=== PATIENT | male | born 1965 | race Caucasian/White ===

== ENCOUNTER 2016-11-09 13:45 | Outpatient (CLI) | payer OTHER, BC | END 2016-11-09 13:46 | disposition critical access hospital (66) | LOC: EMS 13:45 | PROVIDERS: ATTEND Surgery | DX: R06.02 Shortness of breath (principal); R53.1 Weakness; R11.0 Nausea; R19.7 Diarrhea, unspecified | CPT/HCPCS: A0425; A0429 ==

== ENCOUNTER 2016-11-09 13:50 | Emergency (ER) | payer OTHER, BC ==
[2016-11-09 14:13] LABS: BASOPHILS # (AUTO) 0.1 10^3/uL (0.0-0.1); BASOPHILS % (AUTO) 0.4 %; EOSINOPHILS # (AUTO) 0.2 10^3/uL (0.0-0.7); EOSINOPHILS % (AUTO) 1.3 %; HGB - HEMOGLOBIN 15.5 g/dL (14.0-18.0); LYMPHOCYTES # (AUTO) 0.5 10^3/uL (1.5-3.5); LYMPHOCYTES % (AUTO) 4.1 %; MEAN CORPUSCULAR HEMOGLOBIN 30.5 pg (27.0-31.0); MEAN CORPUSCULAR HGB CONC 34.4 g/dL (32.0-36.0); MEAN CORPUSCULAR VOLUME 88.7 fL (80.0-94.0); MEAN PLATELET VOLUME 8.4 fL (7.4-11.4); MONOCYTES # (AUTO) 0.7 10^3/uL (0.0-1.0); MONOCYTES % (AUTO) 5.4 %; NEUTROPHILS # (AUTO) 10.6 10^3/uL (1.5-6.6); NEUTROPHILS % (AUTO) 88.8 %; RED BLOOD COUNT 5.08 10^6/uL (4.70-6.10); RED CELL DISTRIBUTION WIDTH 12.9 % (12.0-15.0)
[2016-11-09] MEDS ORDERED: FAMOTIDINE 20 MG/50 ML 50 ML IV ONE ×2 (14:19→14:23)
[2016-11-09] MEDS ORDERED: ONDANSETRON 4 MG/2 ML VIAL IVP STA (14:19)
[2016-11-09] MEDS ORDERED: ONDANSETRON 4 MG/2 ML VIAL ONE (14:23)
[2016-11-09 14:30] LABS: ALBUMIN/GLOBULIN RATIO 1.8 (1.0-2.2); BILIRUBIN,TOTAL 0.9 mg/dL (0.2-1.0); CALCIUM 9.2 mg/dL (8.5-10.3); POTASSIUM 3.9 mmol/L (3.5-5.0); TOTAL PROTEIN 6.8 g/dL (6.7-8.2)
--- NOTE | 2016-11-09 15:01 | XRAY Preliminary Report ---
Exam: XR Chest 1 View IMPRESSION: Normal single view chest. [facility] SITE ID: [id number]
--- NOTE | 2016-11-09 15:03 | XRAY Report ---
EXAM: CHEST RADIOGRAPHY EXAM DATE: 11/09/2016 02:23 PM. CLINICAL HISTORY: Soa. COMPARISON: 03/24/2007. TECHNIQUE: 1 view. FINDINGS: Lungs/Pleura: No focal opacities evident. No pleural effusion. No pneumothorax. Mediastinum: Within exam limitations, cardiomediastinal contour is normal. Other: None. IMPRESSION: Normal single view chest. [facility] Referring Provider Line: [phone] SITE ID: [id number]
--- NOTE | 2016-11-09 15:06 | ED Physician Documentation ---
History of Present Illness - Stated complaint Stated Complaint: SOA - Chief complaint Chief Complaint: General - Additonal information Additional information: hx from pt 51 male approx 11 AM ate a donut then developed nausea, abd fullness, felt soa weak and fatigued, little bit of CP and a lot of non bloody diarrhea has had episodes of profound fatigue several times recently but also reports able to run 6 miles without any problems possible GB issues was told he had biliary colic 20 yr ago had a bit of blood in BM several days ago but not since or today - no prior colonoscopy he is waiting until he is 52 no travel no leg swelling Review of Systems Constitutional: reports: Fatigue. denies: Fever, Chills Cardiac: reports: Chest pain / pressure Respiratory: reports: Dyspnea GI: reports: Abdominal Pain, Nausea, Diarrhea. denies: Bloody / black stool : denies: Dysuria Neurologic: reports: Generalized weakness Endocrine: denies: Easy bruising / bleeding Immunocompromised: denies: Immunocompromised PD PAST MEDICAL HISTORY - Past Medical History Past Medical History: Yes GI: GERD : Kidney stones - Past Surgical History Past Surgical History: Yes - Present Medications Home Medications: Ambulatory Orders Medication Instructions Recorded Confirmed Ondansetron Odt [Zofran] 4 mg TL Q6H PRN #10 tablet 11/09/16 Sucralfate 1 gm PO ACHS #120 tablet 11/09/16 raNITIdine [Zantac] 150 mg PO BID #60 tablet 11/09/16 raNITIdine [Zantac] 150 mg PO DAILY 11/09/16 11/09/16 - Allergies Allergies/Adverse Reactions: Allergies Allergy/AdvReac Type Severity Reaction Status Date / Time No Known Drug Allergies Allergy Verified 11/09/16 13:52 - Social History Does the pt smoke?: No Smoking Status: Never smoker PD ED PE NORMAL - Vitals Vital signs reviewed: Yes - General General: Alert and oriented X 3 - Neck Neck: Supple, no meningeal sign - Cardiac Cardiac: RRR - Respiratory Respiratory: No respiratory distress, Clear bilaterally - Abdomen Abdomen: Soft, Non tender - Derm Derm: Normal color - Extremities Extremities: No deformity - Neuro Neuro: Alert and oriented X 3, 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, No motor deficit, No sensory deficit Results - Vitals Vitals: Vital Signs - 24 hr 11/09/16 11/09/16 11/09/16 13:53 15:08 16:02 Temperature 37.1 C Heart Rate 81 74 80 Respiratory 20 18 17 Rate Blood Pressure 129/73 114/67 101/56 L O2 Saturation 100 97 99 Oxygen O2 Source Room air - EKG (time done) 1353 Rate: Rate (enter#) (78) Rhythm: NSR [place]: LAD Intervals: Normal [place] QRS: Normal Ischemia: Normal ST segments - Labs Labs: Laboratory Tests 11/09/16 11/09/16 11/09/16 14:00 14:00 14:00 WBC 12.0 H RBC 5.08 Hgb 15.5 Hct 45.0 MCV 88.7 MCH 30.5 MCHC 34.4 RDW 12.9 Plt Count 254 MPV 8.4 Neut # 10.6 H Lymph # 0.5 L [place] # 0.7 Eos # 0.2 Baso # 0.1 Absolute Nucleated RBC 0.00 Nucleated RBCs 0.0 Sodium 139 Potassium 3.9 Chloride 106 Carbon Dioxide 22 Anion Gap 11.0 BUN 25 H Creatinine 1.0 Estimated GFR (MDRD) 79 L Glucose 116 H Calcium 9.2 Total Bilirubin 0.9 AST 23 ALT 24 Alkaline Phosphatase 58 Troponin I < 0.04 Total Protein 6.8 Albumin 4.4 Globulin 2.4 Albumin/Globulin Ratio 1.8 Lipase 17 L 11/09/16 16:35 WBC RBC Hgb Hct MCV MCH MCHC RDW Plt Count MPV Neut # Lymph # [place] # Eos # Baso # Absolute Nucleated RBC Nucleated RBCs Sodium Potassium Chloride Carbon Dioxide Anion Gap BUN Creatinine Estimated GFR (MDRD) Glucose Calcium Total Bilirubin AST ALT Alkaline Phosphatase Troponin I < 0.04 Total Protein Albumin Globulin Albumin/Globulin Ratio Lipase - Rads (name of study) CXR Radiology: See rad report (no acute) ruq sono Radiology: See rad report (no gallstones) PD MEDICAL DECISION MAKING - ED course ED course: upper abd and les so CP with SOA fatigue nausea and diarrhea onset after eating a donut no known cardiac dz works out s sx EKG and trop X 2 neg CXR neg abd sono neg lipase LFTs neg pt feeling better after pepcid and zofran - some sx did re-occur after he ate again - suspect gastritis PUD will dc with zantac carafate and fup PMD for consideration of EST (though I think cardiac unlikely) and surgery for endoscopy is sx persist despite meds Departure - Departure Disposition: 01 Home, Self Care Clinical Impression: Abdominal pain, acute, epigastric, Chest pain of uncertain etiology Condition: Good Instructions: ED Abdominal Pain Unkn Cause Male, ED Chest Pain Atypical Unkn Cause Follow-Up: Ilene Schultz PA-C [Primary Care Provider] - Prescriptions: Sucralfate 1 gm PO ACHS #120 tablet raNITIdine [Zantac] 150 mg PO BID #60 tablet Ondansetron Odt [Zofran] 4 mg TL Q6H PRN #10 tablet PRN Reason: Nausea / Vomiting Comments: All of your tests were reassuring. The EKG and two sets of blood tests for your heart were negative. The chest xray did not show an enlarged heart of signs of an aneurysm The liver pancreas and kidney function tests were fine. The ultrasound did not show any gallstones, lover disease, or abdominal aneurysm. It is possible you have gastritis or an ulcer causing your symptoms but there is no test available in the ER to determine that for certain. But since your work up is reassuring and you are feeling better, I think it is safe for you to go home To be safe I would like you to follow up with your PMD to get a cardiac stress test - I don't believe your symptoms are due to heart problems but it is better to be safe Take the medications I prescribed for presumed gastritis. If you are still having symptoms despite the medication, please follow up with the surgeons for a scope of your stomach. Return to the ER if worse - just because today's tests were reassuring does not mean nothing is wrong - sometimes even with extensive testing in the ER, the cause of symptoms is not initially apparent - but as time passes and new symptoms develop, a diagnosis that was not initially apparent is able to be identified.
--- NOTE | 2016-11-09 15:39 | Ultrasound Preliminary Report ---
Exam: US Abdomen Limited IMPRESSION: 1. No evidence of cholelithiasis or cholecystitis. 2. Hepatomegaly without focal lesion. [facility] SITE ID: [id number]
--- NOTE | 2016-11-09 15:42 | Ultrasound Report ---
EXAM: ABDOMEN ULTRASOUND LIMITED, RUQ EXAM DATE: 11/09/2016 03:20 PM. CLINICAL HISTORY: Upper abdominal discomfort and nausea after donut. COMPARISON: None. TECHNIQUE: Real-time scanning was performed with static images obtained. FINDINGS: Liver: Mildly enlarged without focal lesion. 18.6 cm. Main portal vein flow: Hepatopetal. Gallbladder: Normal. No stones, wall thickening, or sonographic Valladares's sign. Biliary System: CBD measures 5 mm. No intrahepatic or extrahepatic ductal dilatation. Other: Right kidney measures 11.6 cm without hydronephrosis. Simple cyst at the upper pole measuring 1.3 cm. IMPRESSION: 1. No evidence of cholelithiasis or cholecystitis. 2. Hepatomegaly without focal lesion. [facility] Referring Provider Line: [phone] SITE ID: [id number]
[2016-11-09] MEDS ORDERED: LIDOCAINE VISCOUS 2% 15 ML UDC MM STA (17:38)
[2016-11-09] MEDS ORDERED: MAG HYDROX/AL HYDROX/SIMETH 30 ML UDC PO STA (17:38)
[2016-11-09] MEDS ORDERED: LIDOCAINE VISCOUS 2% 15 ML UDC MM ONE (17:40)
[2016-11-09] MEDS ORDERED: MAG HYDROX/AL HYDROX/SIMETH 30 ML UDC ONE (17:41)
[2016-11-09 17:55] VITALS: BP 108/58
== END 2016-11-09 18:00 | disposition home or self-care (01) ==
LOC: EDUNIT# → ED 13:50
DX: R10.13 Epigastric pain (principal); R07.9 Chest pain, unspecified; K21.9 Gastro-esophageal reflux disease without esophagitis; Z87.442 Personal history of urinary calculi
CPT/HCPCS: 36415; 71010; 76705; 80053; 83690; 84484; 85025; 93005; 93010; 96374; 96375; 99284; A9270

== ENCOUNTER 2018-10-05 08:55 | Outpatient (CLI) | payer BC ==
[2018-10-05 17:52] LABS: HGB - HEMOGLOBIN 15.2 g/dL (14.0-18.0); MEAN CORPUSCULAR HEMOGLOBIN 30.5 pg (27.0-31.0); MEAN CORPUSCULAR HGB CONC 33.1 g/dL (32.0-36.0); MEAN PLATELET VOLUME 8.4 fL (7.4-11.4); RED BLOOD COUNT 4.99 10^6/uL (4.70-6.10); RED CELL DISTRIBUTION WIDTH 13.4 % (12.0-15.0)
[2018-10-05 18:41] LABS: ALBUMIN 4.3 g/dL (3.2-5.5); ALBUMIN/GLOBULIN RATIO 1.5 (1.0-2.2); ALKALINE PHOSPHATASE 51 IU/L (42-121); ALT ALANINE AMINOTRANSFERASE 22 IU/L (10-60); AST ASPARTATE AMINOTRANSFERASE 21 IU/L (10-42); BUN - BLOOD UREA NITROGEN 17 mg/dL (6-20); CALCIUM 9.5 mg/dL (8.5-10.3); CARBON DIOXIDE - CO2 29 mmol/L (21-32); CHLORIDE 101 mmol/L (101-111); CHOL/HDL RATIO 4.9 (<5.0); CHOLESTEROL 260 mg/dL; CREATININE 0.9 mg/dL (0.6-1.2); GFR - MDRD 89 (>89); GLUCOSE 117 mg/dL (70-100); HDL CHOLESTEROL 53 mg/dL; LDL CHOLESTEROL,CALCULATED 180 mg/dL; LDL/HDL RATIO 3.4 (<3.6); SODIUM 139 mmol/L (135-145); TOTAL PROTEIN 7.2 g/dL (6.7-8.2); VLDL CHOLESTEROL 27 mg/dL
[2018-10-05 19:00] LABS: HEMOGLOBIN A1C 0.61 g/dL; HEMOGLOBIN A1C % 5.6 % (4.6-6.2)
== END 2018-10-05 08:56 | disposition home or self-care (01) ==
LOC: LAB.F 08:55
PROVIDERS: ATTEND Internal Medicine
DX: Z00.00 Encounter for general adult medical examination without abnormal findings (principal); K21.9 Gastro-esophageal reflux disease without esophagitis
CPT/HCPCS: 36415; 80053; 80061; 83036; 83721; 85027

== ENCOUNTER 2018-12-28 08:31 | Day surgery (SDC) | payer BC ==
[2018-12-28] MEDS ORDERED: LACTATED RINGERS 1,000 ML IV ONE (08:56)
[2018-12-28] MEDS ORDERED: fentaNYL 250 MCG/5 ML VIAL IVP ONE (12:05)
[2018-12-28] MEDS ORDERED: MIDAZOLAM 2 MG/2 ML VIAL IVP ONE (12:05)
[2018-12-28] MEDS ORDERED: ONDANSETRON 4 MG/2 ML VIAL ONE (12:12)
[2018-12-28 13:10] VITALS: BP 140/93
== END 2018-12-28 08:32 | disposition home or self-care (01) ==
LOC: SDS 08:31
PROVIDERS: ATTEND Internal Medicine Gastroenterology
PROC: 0DJD8ZZ Inspection of Lower Intestinal Tract, Via Natural or Artificial Opening Endoscopic (ICD-10-PCS; principal; 2018-12-28 09:30)
DX: Z12.11 Encounter for screening for malignant neoplasm of colon (principal); K21.9 Gastro-esophageal reflux disease without esophagitis; E66.9 Obesity, unspecified; K57.30 Diverticulosis of large intestine without perforation or abscess without bleeding; Z79.899 Other long term (current) drug therapy; Z68.33 Body mass index [BMI] 33.0-33.9, adult
CPT/HCPCS: 45378; J3010; J7120

== ENCOUNTER 2019-04-28 14:32 | Outpatient (CLI) | payer BC ==
--- NOTE | 2019-04-29 13:02 | XRAY Report ---
Reason: OSTEOARTHRITIS, HIP, LEFT, M16.12 Procedure Date: 04/28/2019 Accession Number: [id number] / [id number] Procedure: XRS - Hip w/Pelvis 2-3V LT CPT Code: Final Report FULL RESULT: EXAM: LEFT HIP RADIOGRAPHY EXAM DATE: 04/28/2019 03:07 PM. CLINICAL HISTORY: OSTEOARTHRITIS, HIP, LEFT, M16. 12. COMPARISON: XR HIP UNILAT MIN 2 VIEW 09/30/2009 6:31 PM. TECHNIQUE: 2 views. FINDINGS: Bones: Normal. No fractures or bone lesion. Joints: No subluxation. Severe left hip joint space narrowing with subchondral sclerosis and osteophytes. Soft Tissues: Normal. No soft tissue swelling. IMPRESSION: 1. No fracture or dislocation of the pelvis or hips. 2. Severe left hip degenerative arthritis noted [facility]
== END 2019-04-28 14:33 | disposition home or self-care (01) ==
LOC: DI.S 14:32
PROVIDERS: ATTEND Internal Medicine
DX: M16.12 Unilateral primary osteoarthritis, left hip (principal)

== ENCOUNTER 2019-06-22 09:50 | Outpatient (CLI) | payer BC | END 2019-06-22 23:59 | disposition home or self-care (01) | LOC: LAB.R 09:50 | PROVIDERS: ATTEND Internal Medicine | DX: Z01.818 Encounter for other preprocedural examination (principal) | CPT/HCPCS: 87640 ==

== ENCOUNTER 2019-06-22 10:19 | Outpatient (CLI) | payer BC ==
[2019-06-22 17:10] LABS: HGB - HEMOGLOBIN 14.8 g/dL (14.0-18.0); MEAN CORPUSCULAR HEMOGLOBIN 30.3 pg (27.0-31.0); MEAN CORPUSCULAR VOLUME 91.8 fL (80.0-94.0); MEAN PLATELET VOLUME 10.3 fL (7.4-11.4); RED BLOOD COUNT 4.89 10^6/uL (4.70-6.10); RED CELL DISTRIBUTION WIDTH 12.3 % (12.0-15.0); WHITE BLOOD COUNT 4.3 x10^3/uL (4.8-10.8)
[2019-06-22 17:34] LABS: CALCIUM 8.8 mg/dL (8.5-10.3); CREATININE 0.9 mg/dL (0.6-1.2)
== END 2019-06-22 10:20 | disposition home or self-care (01) ==
LOC: LAB.S 10:19
PROVIDERS: ATTEND Internal Medicine
DX: Z01.818 Encounter for other preprocedural examination (principal)
CPT/HCPCS: 36415; 80048; 85027; 87640

== ENCOUNTER 2020-12-30 09:48 | Emergency (ER) | payer BC ==
--- NOTE | 2020-12-30 10:01 | ED Physician Documentation ---
PD HPI HEADACHE - Stated complaint Stated Complaint: HEAD PX/BLURRY VISION - Chief complaint Chief Complaint: Neuro - History obtained from History obtained from: Patient - History of Present Illness Timing - onset: How many hours ago (1) Timing - duration: Hours (1) Timing - details: Abrupt onset, Still present (onset of visual changes right lateral field with wiggly lines and lights, followed by frontal/right headache. Visual changes lasted about 15 minutes, then improved. Headache continues but is easing. No prior similar episodes. No focal weakness. No loss of vision.) Worst headache ever?: No: Worst headache ever? Location: Front, Right Quality: Aching, Tightness Associated symptoms: No: Fever, Stiff neck, Nausea, Vomiting Improved by: No: Rest Worsened by: No: Light, Noise Contributing factors: No: Hypertension, Recent illness, Trauma Similar symptoms before: Has not had sx before Recently seen: Not recently seen Review of Systems Constitutional: denies: Fever, Chills Eyes: reports: Photophobia (lights and wiggly lines right lateral visual fi eld.). denies: Loss of vision Nose: denies: Rhinorrhea / runny nose, Congestion Throat: denies: Sore throat Respiratory: denies: Cough GI: denies: Nausea, Vomiting Neurologic: reports: Headache. denies: Focal weakness, Numbness, Near syncope, Confused, Altered mental status, Head injury PD PAST MEDICAL HISTORY - Past Medical History Cardiovascular: None Respiratory: None Endocrine/Autoimmune: None GI: Other : Kidney stones HEENT: None Psych: None Musculoskeletal: Osteoarthritis, Chronic back pain Derm: None - Past Surgical History Past Surgical History: Yes Ortho: Arthroscopic surgery, Spine surgery HEENT: Detached retina repair - Present Medications Home Medications: Ambulatory Orders Medication Instructions Recorded Confirmed raNITIdine [Zantac] 150 mg PO DAILY 11/09/16 12/28/18 Ibuprofen 400 mg PO DAILY 12/25/18 12/28/18 Ondansetron Odt [Zofran] 4 mg TL Q6H PRN #10 tablet 12/30/20 oxyCODONE [Roxicodone] 5 mg PO Q4-6H PRN #10 tablet 12/30/20 - Allergies Allergies/Adverse Reactions: Allergies Allergy/AdvReac Type Severity Reaction Status Date / Time acetaminophen [From Vicodin] Allergy Nausea Verified 12/30/20 09:58 hydrocodone [From Vicodin] Allergy Nausea Verified 12/30/20 09:58 - Social History Does the pt smoke?: No Smoking Status: Never smoker PD ED PE NORMAL - Vitals Vital signs reviewed: Yes - General General: Alert and oriented X 3, No acute distress, Well developed/nourished - HEENT HEENT: PERRL, EOMI, Other (IOP 16. posterior chamber appears normal. Normal appearing retina. ) - Neck Neck: Supple, no meningeal sign, No adenopathy - Cardiac Cardiac: RRR, No murmur - Respiratory Respiratory: Clear bilaterally - Derm Derm: Normal color, Warm and dry - Extremities Extremities: Normal ROM s pain - Neuro Neuro: Alert and oriented X 3, avionics systems engineer 2-12 intact, No motor deficit, No sensory deficit, Normal speech Eye Opening: Spontaneous Motor: Obeys Commands Verbal: Oriented GCS Score: 15 Results - Vitals Vitals: Vital Signs - 24 hr 12/30/20 12/30/20 09:51 10:18 Temperature 36.6 C 36.3 C L Heart Rate 64 66 Respiratory 16 16 Rate Blood Pressure 178/110 H 176/108 H O2 Saturation 99 100 Oxygen O2 Source Room air - Labs Labs: Laboratory Tests 12/30/20 12/30/20 10:55 10:55 Sodium 140 Potassium 4.4 Chloride 101 Carbon Dioxide 28 Anion Gap 11.0 BUN 15 Creatinine 1.0 Estimated GFR (MDRD) 78 L Glucose 114 H Calcium 9.7 Total Bilirubin 1.0 AST 25 ALT 32 Alkaline Phosphatase 73 C-Reactive Protein < 1.0 Total Protein 7.9 Albumin 4.8 Globulin 3.1 Albumin/Globulin Ratio 1.5 Lipase 26 - Rads (name of study) head CT Radiology: Prelim report reviewed (normal head CT), See rad report PD MEDICAL DECISION MAKING - ED course Complexity details: reviewed results (symptoms seem c/w migraine but unusual at this age. No real history of migraines. Can look for acute ICH. Not loss of vision, so not seeming amaurosis. ), re-evaluated patient (headache is improved with toradol/reglan though not resolved. ), considered differential (has headache and right visual field scotomata, which he says he sees with both eyes, more right. right eye exam appears normal. CT head without bleed/mass effect. No loss of vision so does not seem vaso-occlusive. ), d/w patient Departure - Departure Disposition: 01 Home, Self Care Clinical Impression: Acute headache Qualifiers: Headache type: unspecified Intractability: not intractable Qualified Code(s): R51.9 - Headache, unspecified Visual field scotoma Qualifiers: Laterality: bilateral Qualified Code(s): H53.413 - [place] involving central area, bilateral Condition: Stable Record reviewed to determine appropriate education?: Yes Instructions: ED Cephalgia Unspecified Prescriptions: oxyCODONE [Roxicodone] 5 mg PO Q4-6H PRN #10 tablet PRN Reason: Pain Ondansetron Odt [Zofran] 4 mg TL Q6H PRN #10 tablet PRN Reason: Nausea / Vomiting Comments: Your head CT scan is without any acute abnormalities. Your eye exam appears normal. I presume this is a migraine type headache with some visual changes. As such I would anticipate improving through the day. You may get them episod ically. Use Tylenol or ibuprofen if needed for mild pains and headache. Recheck if not improved over the next day or 2 and return if worsening or other symptoms associated. If needed, you can add ondansetron if needed for nausea and oxycodone if needed for worse headache periodically. I am prescribing a short course of narcotic pain medication for you. These are potentially dangerous and addictive medications that should be used carefully. These medications may constipate you. Take an tvck-mhs-umyeqty stool softener such as docusate twice daily with plenty of water while taking these med ications. If you go 24 hours without a bowel movement, take [id number] MiraLAX, per package instructions. Do not drink or drive while taking these medications. If you received narcotic or sedating medications while in the emergency department do not drive for 24 hours. Store this medication in a safe, secure place and out of reach of children. It is a violation of federal law to give or sell this medication to another person or to use in a manner other than prescribed. The ED will not refill narcotic prescriptions, including prescriptions lost or stolen. You can dispose of unwanted medications at the [facility] office or at several pharmacies such as [facility]. Discharge Date/Time: 12/30/20 11:39
[2020-12-30 10:18] VITALS: BP 176/108
[2020-12-30] MEDS ORDERED: KETOROLAC 15 MG/ML VIAL IVP STA (10:21)
[2020-12-30] MEDS ORDERED: METOCLOPRAMIDE 10 MG/2 ML VIAL IVP STA (10:22)
[2020-12-30] MEDS ORDERED: SODIUM CHLORIDE 0.9% 1,000 ML IV STA (10:23)
--- NOTE | 2020-12-30 10:53 | CT Report ---
PROCEDURE: HEAD WO INDICATIONS: abrupt headache and visual changes TECHNIQUE: Noncontrast 4.5 mm thick angled axial sections acquired from the foramen magnum to the vertex. For r adiation dose reduction, the following was used: automated exposure control, adjustment of mA and/or kV according to patient size. COMPARISON: None. FINDINGS: Image quality: There is streak artifact seen through the skull base. CSF spaces: Basal cisterns are patent. No extra-axial fluid collections. Ventricles are normal in size and shape. Brain: No midline shift. No intracranial masses or hemorrhage. [place]-white matter interface is norm al. Skull and face: Calvarium and visualized facial bones are intact, without suspicious lesions. Sinuses: Visualized sinuses and mastoids are clear. IMPRESSION: No intracranial hemorrhage is seen. No significant intracranial abnormality is seen. Reviewed by: Rodrigue Glass MD on 12/30/2020 9:52 AM HOME Approved by: Rodrigue Glass MD on 12/30/2020 9:52 AM HOME Station ID: [id number]
[2020-12-30] MEDS ORDERED: ACETAMINOPHEN 325 MG TABLET PO STA (11:03)
[2020-12-30] MEDS ORDERED: DEXAMETHASONE 10 MG/ML VIAL IVP STA (11:03)
[2020-12-30 11:25] LABS: ALBUMIN 4.8 g/dL (3.2-5.5); ALBUMIN/GLOBULIN RATIO 1.5 (1.0-2.2); CALCIUM 9.7 mg/dL (8.5-10.3); POTASSIUM 4.4 mmol/L (3.5-5.0); TOTAL PROTEIN 7.9 g/dL (6.7-8.2)
== END 2020-12-30 11:39 | disposition home or self-care (01) ==
LOC: ED 09:48
DX: R51.9 Headache, unspecified (principal); H53.413 Scotoma involving central area, bilateral
CPT/HCPCS: 36415; 70450; 80053; 83690; 86140; 96374; 96375; 99284; A9270; J2765

== ENCOUNTER 2023-05-01 13:39 | Emergency (ER) | payer BC, OTHER ==
--- NOTE | 2023-05-01 14:16 | ED Physician Documentation ---
PD HPI CHEST PAIN - Stated complaint Stated Complaint: LIGHT HEADED,L ARM PX - Chief complaint Chief Complaint: Cardiac - History obtained from History obtained from: Patient - History of Present Illness Timing - onset: Yesterday Timing - onset during: Light activity (lightheaded feeling with sitting up quickly. No chest pain per se. Today also with some substernal discomfort which he related as GERD that he gets periodically. And left shoulder aching with ROM (lifting it).) Timing - duration: Minutes Timing - details: Intermittant Quality: Aching (left anterior shoulder), Dull (epigastric area.). No: Pressure, Tightness Location: Substernal, Epigastric Radiation: No: Jaw, Neck Improved by: No: Rest Worsened by: No: Inspiration, Eating, Movement Associated symptoms: Feeling faint / dizzy. No: Shortness of air, Nausea, Palpitations Similar symptoms before: No diagnosis (he relates the epigastric feeling as GERD that he gets periodically and usually improved with antacids.) Review of Systems Constitutional: denies: Fever, Chills Nose: denies: Rhinorrhea / runny nose, Congestion Throat: denies: Sore throat Cardiac: denies: Palpitations, Pedal edema, Calf pain Respiratory: denies: Cough, Wheezing GI: denies: Abdominal Pain, Vomiting, Diarrhea Neurologic: denies: Focal weakness, Numbness, Near syncope PD PAST MEDICAL HISTORY - Past Medical History Past Medical History: Yes Cardiovascular: None Respiratory: None Endocrine/Autoimmune: None GI: Other : Kidney stones HEENT: None Psych: None Musculoskeletal: Osteoarthritis, Chronic back pain Derm: None - Past Surgical History Past Surgical History: Yes Ortho: Arthroscopic surgery, Spine surgery HEENT: Detached retina repair - Present Medications Home Medications: Ambulatory Orders Medication Instructions Recorded Confirmed No Known Home Medications 05/01/23 05/01/23 - Allergies Allergies/Adverse Reactions: Allergies Allergy/AdvReac Type Severity Reaction Status Date / Time acetaminophen [From Vicodin] Allergy Nausea Verified 05/01/23 14:05 hydrocodone [From Vicodin] Allergy Nausea Verified 05/01/23 14:05 - Social History Does the pt smoke?: No Smoking Status: Never smoker PD ED PE NORMAL - Vitals Vital signs reviewed: Yes - General General: Alert and oriented X 3, No acute distress, Well developed/nourished - Neck Neck: Supple, no meningeal sign, No adenopathy - Cardiac Cardiac: RRR, No murmur, No rub - Respiratory Respiratory: No respiratory distress, Clear bilaterally - Abdomen Abdomen: Soft, Non tender - Derm Derm: Normal color, Warm and dry - Extremities Extremities: Normal ROM s pain, No edema, No calf tenderness / cord - Neuro Neuro: Alert and oriented X 3, No motor deficit, Normal speech Results - Vitals Vitals: Vital Signs - 24 hr 05/01/23 05/01/23 05/01/23 13:41 14:02 15:02 Temperature 36 C L Heart Rate 81 75 73 Respiratory 16 11 L 18 Rate Blood Pressure 147/98 H 145/93 H 133/80 H O2 Saturation 97 98 96 05/01/23 05/01/23 05/01/23 15:30 16:00 17:00 Temperature Heart Rate 74 67 67 Respiratory 21 20 17 Rate Blood Pressure 129/83 H 172/103 H 141/86 H O2 Saturation 95 97 95 05/01/23 05/01/23 17:02 17:17 Temperature Heart Rate 66 65 Respiratory 19 21 Rate Blood Pressure 141/86 H O2 Saturation 96 96 Oxygen O2 Source Room air - EKG (time done) 13:47 EKG releavant findings:: EKG personally interpreted by author of this note. Relevant findings are: Rate: Rate (enter#) (87) Rhythm: NSR [place]: Normal Intervals: Normal [place] QRS: Normal Ischemia: Normal ST segments. No: ST elevation c/w ischemia, ST depression - Labs Labs: Laboratory Tests 05/01/23 05/01/23 05/01/23 13:55 13:55 16:04 WBC 7.7 RBC 5.09 Hgb 15.5 Hct 45.9 MCV 90.2 MCH 30.5 MCHC 33.8 RDW 11.9 L Plt Count 323 MPV 10.1 Neut # (Auto) 4.2 Lymph # (Auto) 2.6 [place] # (Auto) 0.6 Eos # (Auto) 0.2 Baso # (Auto) 0.1 Absolute Nucleated RBC 0.00 Nucleated RBC % 0.0 Sodium 138 Potassium 3.6 Chloride 103 Carbon Dioxide 29 Anion Gap 6.0 BUN 19 Creatinine 1.2 Estimated GFR (MDRD) 63 L Glucose 128 H Calcium 9.3 Total Bilirubin 0.6 AST 18 ALT 20 Alkaline Phosphatase 67 Troponin I High Sens 42.6 H* 41.4 H* B-Natriuretic Peptide Total Protein 7.0 Albumin 4.6 Globulin 2.4 Albumin/Globulin Ratio 1.9 Lipase 18 05/01/23 16:04 WBC RBC Hgb Hct MCV MCH MCHC RDW Plt Count MPV Neut # (Auto) Lymph # (Auto) [place] # (Auto) Eos # (Auto) Baso # (Auto) Absolute Nucleated RBC Nucleated RBC % Sodium Potassium Chloride Carbon Dioxide Anion Gap BUN Creatinine Estimated GFR (MDRD) Glucose Calcium Total Bilirubin AST ALT Alkaline Phosphatase Troponin I High Sens B-Natriuretic Peptide 18 Total Protein Albumin Globulin Albumin/Globulin Ratio Lipase - Rads (name of study) chest xray Relevant Findings:: Prelim report reviewed, EMP independent interpretation of test (no acute process) PD Medical Decision Making - ED course Complexity details: reviewed results, considered differential, d/w patient Reviewed Lab Results: The EKG is normal without any ischemic changes. Chest x-ray is clear without any signs of infiltrate, effusion, enlarged heart or pneumothorax. Blood tests are showing a normal blood count and electrolytes, kidney function, blood sugar. These were all reviewed by me. His initial cardiac test showed a normal BNP of 18. Initial troponin was 42 with a 2-hour repeat of 41. Both in the low indeterminant range. This flatness suggest no acute injury, especially in lieu of having some symptoms since yesterday. He was not having any lightheadedness no chest discomfort here. He had some left shoulder pain that was worse with range of motion suggesting more musculoskeletal. Departure - Departure Disposition: 01 Home, Self Care Clinical Impression: Light-headed feeling Shoulder pain Qualifiers: Chronicity: acute Laterality: left Qualified Code(s): M25.512 - Pain in left shoulder Clinical Impression: (Ruled Out): Myocardial infarction Condition: Stable Record reviewed to determine appropriate education?: Yes Instructions: ED Chest Pain Atypical Unkn Cause Comments: Your EKG is normal. Your chest x-ray does not show any lung abnormalities. Your blood tests do not show any signs of heart failure nor heart attack. Regarding the lightheadedness feeling, your blood count is normal without any anemia. Blood sugar and electrolytes are good as is kidney function. Your heart rate and rhythm are normal. I do not see a obvious cause for the symptoms. Consider hydration as a possibility. Cut down on your caffeine intake and have more free fluids and water and etc. Tylenol ibuprofen if needed for the shoulder pain, presume more musculoskeletal for that. Follow-up with your primary care if you have more consistent pattern of any shortness of breath or discomfort in your chest with exertion etc. Forms: PCP List Discharge Date/Time: 05/01/23 17:27
[2023-05-01 14:22] LABS: BASOPHILS # (AUTO) 0.1 10^3/uL (0.0-0.1); BASOPHILS % (AUTO) 0.8 %; EOSINOPHILS # (AUTO) 0.2 10^3/uL (0.0-0.7); EOSINOPHILS % (AUTO) 2.1 %; HCT - HEMATOCRIT 45.9 % (42.0-52.0); HGB - HEMOGLOBIN 15.5 g/dL (14.0-18.0); LYMPHOCYTES # (AUTO) 2.6 10^3/uL (1.5-3.5); LYMPHOCYTES % (AUTO) 33.9 %; MEAN CORPUSCULAR HEMOGLOBIN 30.5 pg (27.0-31.0); MEAN CORPUSCULAR HGB CONC 33.8 g/dL (32.0-36.0); MEAN CORPUSCULAR VOLUME 90.2 fL (80.0-94.0); MEAN PLATELET VOLUME 10.1 fL (7.4-11.4); MONOCYTES # (AUTO) 0.6 10^3/uL (0.0-1.0); MONOCYTES % (AUTO) 8.3 %; NEUTROPHILS # (AUTO) 4.2 10^3/uL (1.5-6.6); NEUTROPHILS % (AUTO) 54.6 %; PLT - PLATELET COUNT 323 10^3/uL (130-450); RED BLOOD COUNT 5.09 10^6/uL (4.70-6.10); RED CELL DISTRIBUTION WIDTH 11.9 % (12.0-15.0); WHITE BLOOD COUNT 7.7 x10^3/uL (4.8-10.8)
--- NOTE | 2023-05-01 14:22 | XRAY Report ---
PROCEDURE: Chest 1 View X-Ray INDICATIONS: Chest pain TECHNIQUE: One view of the chest was acquired. COMPARISON: Chest x-ray 11/09/2016. FINDINGS: Surgical changes and devices: None. Lungs and pleura: No pleural effusions or pneumothorax. Lungs are clear. Mediastinum: Mediastinal contours appear normal. Heart size is normal. Bones and chest wall: No suspicious bony lesions. Overlying soft tissues appear unremarkable. IMPRESSION: No acute cardiopulmonary process. Reviewed by: Ever Garcia MD on 05/01/2023 2:21 PM PST Approved by: Ever Garcia MD on 05/01/2023 2:21 PM PST Station ID: [id number]
[2023-05-01 14:32] LABS: ALBUMIN 4.6 g/dL (3.2-5.5); ALBUMIN/GLOBULIN RATIO 1.9 (1.0-2.2); BILIRUBIN,TOTAL 0.6 mg/dL (0.2-1.0); CALCIUM 9.3 mg/dL (8.5-10.3); CREATININE 1.2 mg/dL (0.6-1.3); POTASSIUM 3.6 mmol/L (3.5-4.5)
[2023-05-01 15:28] LABS: TROPONIN I HIGH SENSITIVITY 42.6 ng/L (2.3-19.7)
[2023-05-01] MEDS ORDERED: MAG HYDROX/AL HYDROX/SIMETH 30 ML UDC PO STA (16:31)
[2023-05-01 17:13] VITALS: BP 141/86; O2SAT 96
== END 2023-05-01 17:27 | disposition home or self-care (01) ==
LOC: ED 13:39
DX: M25.512 Pain in left shoulder (principal); R42 Dizziness and giddiness
CPT/HCPCS: 36415; 71045; 80053; 83690; 83880; 84484; 85025; 93005; 99283; 99284; A9270